=== PATIENT | female | born 1940 | race Caucasian/White ===

== ENCOUNTER 2020-10-09 05:33 | Emergency (ER) | payer OTHER ==
[~2020-10-09] VITALS: Ht 165.1 cm; Wt 68.0 kg
[2020-10-09 06:37] LABS: HEMATOCRIT. 42.2 % (36.0-48.0); HEMOGLOBIN. 14.6 g/dL (12.0-16.0); MEAN CORPUSCULAR HEMOGLOBIN 32.7 pg (28.0-32.0); MEAN CORPUSCULAR VOLUME 94.5 fL (81.0-99.0); MEAN PLATELET VOLUME 6.6 fl (7.4-10.4); PLATELET 401 x1000/uL (130-400); RED BLOOD CELL COUNT 4.47 mill/uL (4.2-5.4); RED CELL DISTRIBUTION WIDTH 13.9 % (11.6-14.6)
[2020-10-09 06:46] LABS: CHLORIDE 91 mEq/L (98-107)
[2020-10-09 06:51] LABS: ETHANOL BLOOD < 10 mg/dL
[2020-10-09 07:19] LABS: PLATELET ESTIMATE NORMAL
[2020-10-09 07:30] LABS: *AMPHETAMINES SCREEN URINE NEGATIVE (NEGATIVE); *BARBITURATES SCREEN URINE NEGATIVE (NEGATIVE); *BENZODIAZEPINES SCREEN URINE NEGATIVE (NEGATIVE); *COCAINE SCREEN URINE NEGATIVE (NEGATIVE); METHADONE URINE SCREEN NEGATIVE (NEGATIVE); OPIATES URINE SCREEN NEGATIVE (NEGATIVE)
[2020-10-09] MEDS ORDERED: SODIUM CHLORIDE 0.9% 500 ML IV NR (07:30)
[2020-10-09 07:31] LABS: CANNABINOID URINE SCREEN NEGATIVE (NEGATIVE); PHENCYCLIDINE URINE SCREEN NEGATIVE (NEGATIVE)
[2020-10-09 15:30] VITALS: BP 160/91
== END 2020-10-09 16:11 | disposition short-term general hospital (02) ==
LOC: ER 05:33
DX: S00.83XA Contusion of other part of head, initial encounter (principal); R55 Syncope and collapse; W18.39XA Other fall on same level, initial encounter; Y93.89 Activity, other specified; Y92.89 Other specified places as the place of occurrence of the external cause; Y99.8 Other external cause status; E87.8 Other disorders of electrolyte and fluid balance, not elsewhere classified; E87.2 Acidosis; E87.1 Hypo-osmolality and hyponatremia; Z90.710 Acquired absence of both cervix and uterus; I10 Essential (primary) hypertension; Z20.822 Contact with and (suspected) exposure to COVID-19
CPT/HCPCS: 36415; 71045; 80053; 80305; 80320; 83605; 83880; 84484; 85025; 87426; 93005; 96360; 99285; G0480